=== PATIENT | female | born 1945 | race Caucasian/White ===

== ENCOUNTER 2016-12-19 16:34 | Emergency (ER) | payer MEDICARE, BC ==
[~2016-12-19] VITALS: Ht 167.6 cm; Wt 49.9 kg
[~2016-12-19 16:34] MED LIST: HORMONE
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
[2016-12-19 18:02] VITALS: BP 109/59
--- NOTE | 2016-12-19 18:03 | NUR ---
Patient discharged to home in stable condition. Written and verbal after care instructions given. Patient verbalizes understanding of instruction.
== END 2016-12-19 18:03 | disposition home or self-care (01) ==
LOC: ER 16:37
DX: S09.90XA Unspecified injury of head, initial encounter (principal); M81.0 Age-related osteoporosis without current pathological fracture; H26.9 Unspecified cataract; W22.8XXA Striking against or struck by other objects, initial encounter; Y93.89 Activity, other specified; Y92.89 Other specified places as the place of occurrence of the external cause; Y99.9 Unspecified external cause status
CPT/HCPCS: 70450; 99284; A4606; Z7610

== ENCOUNTER 2023-08-12 10:38 | Emergency (ER) | payer MEDICARE, BC ==
[~2023-08-12] VITALS: Ht 167.6 cm; Wt 48.1 kg
[2023-08-12] MEDS ORDERED: TDAP [DIPH/PERTUSSIS/TET] 0.5 ML VIAL IM ONE (11:18)
[2023-08-12] MEDS: TDAP [DIPH/PERTUSSIS/TET] 0.5 ML VIAL IM ONE (11:20)
[2023-08-12] MEDS ORDERED: AMOX-430 PO (12:46)
[2023-08-12 13:18] VITALS: BP 122/68; TEMP 98.5; O2SAT 98
== END 2023-08-12 13:22 | disposition home or self-care (01) ==
LOC: ER 10:38
DX: S61.451A Open bite of right hand, initial encounter (principal); W54.0XXA Bitten by dog, initial encounter; Y93.89 Activity, other specified; Y92.89 Other specified places as the place of occurrence of the external cause; Y99.8 Other external cause status
CPT/HCPCS: 99285; 90471; 90715; 73130; A6403

== ENCOUNTER 2023-08-15 02:07 | Emergency (ER) | payer MEDICARE, BC ==
[~2023-08-15] VITALS: Ht 167.6 cm; Wt 46.7 kg
[~2023-08-15 02:07] MED LIST changes: +AMOX-430 PO
[2023-08-15 02:28] VITALS: BP 131/76; TEMP 97.9; O2SAT 98
== END 2023-08-15 02:34 | disposition home or self-care (01) ==
LOC: ER 02:19
DX: S61.452D Open bite of left hand, subsequent encounter (principal); W54.0XXD Bitten by dog, subsequent encounter

== ENCOUNTER 2023-09-15 18:02 | Emergency (ER) | payer MEDICARE, BC ==
[~2023-09-15] VITALS: Ht 167.6 cm; Wt 49.0 kg
[2023-09-15] MEDS ORDERED: IBUPROFEN 600 MG TABLET ONE (18:51)
[2023-09-15] MEDS: IBUPROFEN 600 MG TABLET PO ONE (18:54)
[2023-09-15 18:55] VITALS: TEMP 98.5
[2023-09-15 22:11] VITALS: BP 115/84; O2SAT 100
== END 2023-09-15 22:12 | disposition home or self-care (01) ==
LOC: ER 18:02
DX: M79.642 Pain in left hand (principal); Z98.890 Other specified postprocedural states; Z79.899 Other long term (current) drug therapy
CPT/HCPCS: 73110; 73130-TC

== ENCOUNTER 2025-06-01 11:40 | Emergency (ER) | payer MEDICARE, BC ==
[~2025-06-01] VITALS: Ht 167.6 cm; Wt 53.5 kg
[2025-06-01 11:46] VITALS: BP 124/77; TEMP 98.3
[2025-06-01 13:03] VITALS: O2SAT 98
== END 2025-06-01 13:04 | disposition home or self-care (01) ==
LOC: ER 11:41
DX: M25.561 Pain in right knee (principal); M81.0 Age-related osteoporosis without current pathological fracture
CPT/HCPCS: 93971-TC